=== PATIENT | male | born 1955 | race Caucasian/White ===

== ENCOUNTER → 2017-08-31 | Outpatient (CLI) | payer BC | LOC: M RAD 12:44 | DX: K83.0 Cholangitis (principal) | CPT/HCPCS: 74181 ==

== ENCOUNTER 2017-11-19 11:38 | Inpatient (IN) | payer BC ==
[2017-11-19 12:30] LABS: BASO % 0.2 % (0.0-1.0); EOS % 0.2 % (0.0-3.0); HEMATOCRIT 44.9 % (42.0-52.0); HEMOGLOBIN 15.4 g/dl (13.5-17.5); IMMATURE GRANULOCYTE % 0.5 % (0-3.0); LYMPH # 1.4 10^3/uL (1.5-4.5); MEAN CORPUSCULAR HGB CONC 34.3 g/dl (32.0-36.5); MEAN CORPUSCULAR VOLUME 93.2 fl (80.0-96.0); MONO # 0.5 10^3/uL (0.0-0.8); MONO % 2.7 % (0.0-5.0); NEUTROPHILS # 14.9 10^3/uL (1.8-7.7); NEUTROPHILS % 88.4 % (36.0-66.0); PLATELET COUNT, AUTOMATED 143 10^3/uL (150-450); RED BLOOD COUNT 4.82 10^6/uL (4.30-6.10); RED CELL DISTRIBUTION WIDTH 11.9 % (11.5-14.5); WHITE BLOOD COUNT 16.9 10^3/uL (4.0-10.0)
[2017-11-19] MEDS: NS 1,000 ML IV ×2 (12:30→15:24)
[2017-11-19 12:34] LABS: KETONE, URINE AUTO RFX NEGATIVE (NEGATIVE); MUCUS, URINE RFX SMALL (NEGATIVE); NITRITE, URINE AUTO RFX NEGATIVE (NEGATIVE); RBC, URINE AUTO RFX 3 /HPF (0-3); SQUAM EPITHELIAL CELL UR AURFX 0 /HPF (0-6)
[2017-11-19 12:43] LABS: LEUKOCYTE ESTERASE UR AUTO RFX 1+ (NEGATIVE); WBC, URINE AUTO RFX 34 /HPF (0-3)
[2017-11-19 12:47] LABS: ALBUMIN 3.8 GM/DL (3.2-5.2); ALBUMIN/GLOBULIN RATIO 1.06 (1.00-1.93); ALKALINE PHOSPHATASE 47 U/L (45-117); ALT/SGPT 45 U/L (12-78); AMYLASE 29 U/L (25-115); ANION GAP 10 MEQ/L (8-16); AST/SGOT 16 U/L (7-37); BILIRUBIN,DIRECT 0.3 MG/DL (0.0-0.2); BILIRUBIN,TOTAL 1.5 MG/DL (0.2-1.0); BLOOD UREA NITROGEN 18 MG/DL (7-18); CARBON DIOXIDE LEVEL 27 MEQ/L (21-32); CHLORIDE LEVEL 100 MEQ/L (98-107); CREATININE FOR GFR 1.25 MG/DL (0.70-1.30); GLOMERULAR FILTRATION RATE > 60.0 (>49); GLUCOSE, FASTING 280 MG/DL (70-100); LIPASE 53 U/L (73-393); SODIUM LEVEL 137 MEQ/L (136-145); TOTAL PROTEIN 7.4 GM/DL (6.4-8.2)
[2017-11-19] MEDS ORDERED: DEXTROSE 50% 50 ML SYRINGE IV (14:45)
[2017-11-19] MEDS ORDERED: GLUCAGON FOR INJ 1 MG VIAL (J1610) SC (14:45)
[2017-11-19] MEDS ORDERED: GLUCOSE 4 GM CHEW TABLET PO (14:45)
[2017-11-19] MEDS: cefTRIAXone SOD 1 GM in D5W MINI-BAG PLUS 50 ML IV (14:48)
[2017-11-19 16:43] LABS: CHLAMYDIA DNA AMPLIFICATION NEGATIVE (NEGATIVE); GC DNA AMPLIFICATION NEGATIVE (NEGATIVE)
[2017-11-19] MEDS: ACETAMINOPHEN TAB 650MG DOSE (2X325MG) PO ×2 (16:50→22:06)
[2017-11-19 17:44] LABS: BEDSIDE GLUCOSE 215 MG/DL (80-115)
[2017-11-19] MEDS: HumaLOG INSULIN (NovoLOG) PER UNIT SC (17:58)
[2017-11-19] MEDS: HEPARIN SOD (PORCINE) 5000 UNITS/ML VIAL SC (17:58)
[2017-11-19 18:07] LABS: LACTIC ACID SEPSIS PROTOCOL 1.8 MMOL/L (0.4-2.0)
[2017-11-19] MEDS: UNRESOLVED PATIENT OWN MED ORDER XX (19:00)
[2017-11-19] MEDS ORDERED: MESALAMINE 400 MG CAPSULE DELAYED RELEASE (DELZICOL) PO (21:00)
[2017-11-19] MEDS: GABAPENTIN 300 MG CAP PO (22:00)
[2017-11-19] MEDS: SIMVASTATIN 20 MG TAB PO (22:00)
[2017-11-19] MEDS: CO-ENZYME Q10 50 MG CAP PO (22:00)
[2017-11-20] MEDS ORDERED: UNRESOLVED PATIENT OWN MED ORDER XX (00:01)
[2017-11-20] MEDS: HEPARIN SOD (PORCINE) 5000 UNITS/ML VIAL SC ×4 (00:09→22:47)
[2017-11-20] MEDS ORDERED: ISOVUE-370 76% 100ML VIAL (Q9967) As Ordered (00:53)
[2017-11-20 01:40] LABS: BEDSIDE GLUCOSE 259 MG/DL (80-115)
[2017-11-20] MEDS: traMADol 50 MG TAB PO (03:09)
[2017-11-20] MEDS: TAMSULOSIN 0.4 MG CAP PO ×2 (03:10→07:55)
[2017-11-20] MEDS: NS 1,000 ML IV ×2 (03:10→13:01)
[2017-11-20 06:42] LABS: HEMATOCRIT 40.2 % (42.0-52.0); HEMOGLOBIN 13.9 g/dl (13.5-17.5); MEAN CORPUSCULAR HEMOGLOBIN 32.3 pg (27.0-33.0); MEAN CORPUSCULAR HGB CONC 34.6 g/dl (32.0-36.5); MEAN CORPUSCULAR VOLUME 93.5 fl (80.0-96.0); PLATELET COUNT, AUTOMATED 115 10^3/uL (150-450); RED CELL DISTRIBUTION WIDTH 12.1 % (11.5-14.5); WHITE BLOOD COUNT 20.3 10^3/uL (4.0-10.0)
[2017-11-20 07:02] LABS: ANION GAP 7 MEQ/L (8-16); BLOOD UREA NITROGEN 14 MG/DL (7-18); CALCIUM LEVEL 8.9 MG/DL (8.8-10.2); CARBON DIOXIDE LEVEL 27 MEQ/L (21-32); CHLORIDE LEVEL 106 MEQ/L (98-107); CREATININE FOR GFR 1.04 MG/DL (0.70-1.30); GLOMERULAR FILTRATION RATE > 60.0 (>49); GLUCOSE, FASTING 214 MG/DL (70-100); SODIUM LEVEL 140 MEQ/L (136-145)
[2017-11-20] MEDS: GABAPENTIN 100 MG CAP PO (07:54)
[2017-11-20] MEDS: ASCORBIC ACID 500 MG TAB PO (07:54)
[2017-11-20] MEDS: LISINOPRIL 40 MG TAB PO (07:54)
[2017-11-20] MEDS: PANTOPRAZOLE 40MG TAB (PROTONIX) PO (07:54)
[2017-11-20] MEDS: hydroCHLOROthiazide 25 MG TAB PO (07:55)
[2017-11-20] MEDS: HumaLOG INSULIN (NovoLOG) PER UNIT SC ×4 (07:56→20:06)
[2017-11-20] MEDS: UNRESOLVED PATIENT OWN MED ORDER XX (07:57)
[2017-11-20 11:21] LABS: BEDSIDE GLUCOSE 444 MG/DL (80-115)
[2017-11-20] MEDS: cefTRIAXone SOD 1 GM in D5W MINI-BAG PLUS 50 ML IV (15:20)
[2017-11-20] MEDS: ACETAMINOPHEN TAB 650MG DOSE (2X325MG) PO (15:23)
[2017-11-20 16:27] LABS: BEDSIDE GLUCOSE 400 MG/DL (80-115)
[2017-11-20 19:54] LABS: BEDSIDE GLUCOSE 206 MG/DL (80-115)
[2017-11-20] MEDS: LEVEMIR (INSULIN DETEMIR) 1 UNITS/0.01ML SC (20:14)
[2017-11-20] MEDS: CO-ENZYME Q10 50 MG CAP PO (20:14)
[2017-11-20] MEDS: GABAPENTIN 300 MG CAP PO (20:14)
[2017-11-20] MEDS: SIMVASTATIN 20 MG TAB PO (20:14)
[2017-11-21] MEDS: NS 1,000 ML IV (00:12)
[2017-11-21] MEDS: ACETAMINOPHEN TAB 650MG DOSE (2X325MG) PO ×5 (00:12→18:55)
[2017-11-21] MEDS: HEPARIN SOD (PORCINE) 5000 UNITS/ML VIAL SC ×3 (05:13→20:26)
[2017-11-21 06:08] LABS: HEMATOCRIT 37.7 % (42.0-52.0); HEMOGLOBIN 13.2 g/dl (13.5-17.5); MEAN CORPUSCULAR HEMOGLOBIN 32.4 pg (27.0-33.0); MEAN CORPUSCULAR VOLUME 92.6 fl (80.0-96.0); PLATELET COUNT, AUTOMATED 102 10^3/uL (150-450); RED BLOOD COUNT 4.07 10^6/uL (4.30-6.10); RED CELL DISTRIBUTION WIDTH 11.9 % (11.5-14.5); WHITE BLOOD COUNT 8.3 10^3/uL (4.0-10.0)
[2017-11-21 06:33] LABS: ANION GAP 8 MEQ/L (8-16); BLOOD UREA NITROGEN 11 MG/DL (7-18); CALCIUM LEVEL 8.3 MG/DL (8.8-10.2); CARBON DIOXIDE LEVEL 27 MEQ/L (21-32); CHLORIDE LEVEL 106 MEQ/L (98-107); CREATININE FOR GFR 0.94 MG/DL (0.70-1.30); GLOMERULAR FILTRATION RATE > 60.0 (>49); GLUCOSE, FASTING 184 MG/DL (70-100); POTASSIUM SERUM 3.5 MEQ/L (3.5-5.1); SODIUM LEVEL 141 MEQ/L (136-145)
[2017-11-21 06:57] LABS: ESTIMATED AVERAGE GLUCOSE 174 MG/DL (60-110); HEMOGLOBIN A1c 7.7 %
[2017-11-21] MEDS: hydroCHLOROthiazide 25 MG TAB PO (08:29)
[2017-11-21] MEDS: ASCORBIC ACID 500 MG TAB PO (08:29)
[2017-11-21] MEDS: GABAPENTIN 100 MG CAP PO (08:29)
[2017-11-21] MEDS: PANTOPRAZOLE 40MG TAB (PROTONIX) PO (08:29)
[2017-11-21] MEDS: TAMSULOSIN 0.4 MG CAP PO (08:29)
[2017-11-21] MEDS: LISINOPRIL 40 MG TAB PO (08:29)
[2017-11-21] MEDS: HumaLOG INSULIN (NovoLOG) PER UNIT SC ×4 (08:30→20:27)
[2017-11-21] MEDS: LEVEMIR (INSULIN DETEMIR) 1 UNITS/0.01ML SC ×2 (08:30→20:01)
[2017-11-21] MEDS: UNRESOLVED PATIENT OWN MED ORDER XX (08:58)
[2017-11-21 09:55] LABS: CONTROL LINE INT CTR LINE PRESENT; HIV SCRN NEGATIVE (NEGATIVE); HIV SCRN1 NEGATIVE (NEGATIVE)
[2017-11-21 11:37] LABS: BEDSIDE GLUCOSE 308 MG/DL (80-115)
[2017-11-21] MEDS: LIALDA 1.2 GM PO ×2 (13:12→19:59)
[2017-11-21] MEDS: cefTRIAXone SOD 1 GM in D5W MINI-BAG PLUS 50 ML IV (14:32)
[2017-11-21 16:55] LABS: BEDSIDE GLUCOSE 161 MG/DL (80-115)
[2017-11-21] MEDS: KETOROLAC 30 MG/ML VIAL (J1885) IV (19:59)
[2017-11-21] MEDS: SIMVASTATIN 20 MG TAB PO (20:00)
[2017-11-21] MEDS: GABAPENTIN 300 MG CAP PO (20:00)
[2017-11-21] MEDS: CO-ENZYME Q10 50 MG CAP PO (20:00)
[2017-11-21 20:09] LABS: HEMATOCRIT 37.8 % (42.0-52.0); HEMOGLOBIN 13.3 g/dl (13.5-17.5); MEAN CORPUSCULAR HEMOGLOBIN 32.2 pg (27.0-33.0); MEAN CORPUSCULAR HGB CONC 35.2 g/dl (32.0-36.5); MEAN CORPUSCULAR VOLUME 91.5 fl (80.0-96.0); PLATELET COUNT, AUTOMATED 112 10^3/uL (150-450); RED BLOOD COUNT 4.13 10^6/uL (4.30-6.10); RED CELL DISTRIBUTION WIDTH 11.8 % (11.5-14.5); WHITE BLOOD COUNT 4.6 10^3/uL (4.0-10.0)
[2017-11-21 20:16] LABS: BEDSIDE GLUCOSE 261 MG/DL (80-115)
[2017-11-22] MEDS: ACETAMINOPHEN TAB 650MG DOSE (2X325MG) PO ×2 (02:16→09:12)
[2017-11-22 06:47] LABS: HEMATOCRIT 38.4 % (42.0-52.0); HEMOGLOBIN 13.5 g/dl (13.5-17.5); MEAN CORPUSCULAR HEMOGLOBIN 31.8 pg (27.0-33.0); MEAN CORPUSCULAR HGB CONC 35.2 g/dl (32.0-36.5); MEAN CORPUSCULAR VOLUME 90.6 fl (80.0-96.0); PLATELET COUNT, AUTOMATED 118 10^3/uL (150-450); RED BLOOD COUNT 4.24 10^6/uL (4.30-6.10); RED CELL DISTRIBUTION WIDTH 11.9 % (11.5-14.5); WHITE BLOOD COUNT 4.6 10^3/uL (4.0-10.0)
[2017-11-22] MEDS: HEPARIN SOD (PORCINE) 5000 UNITS/ML VIAL SC ×4 (06:52→20:48)
[2017-11-22 07:10] LABS: ANION GAP 7 MEQ/L (8-16); BLOOD UREA NITROGEN 13 MG/DL (7-18); C REACTIVE PROTEIN QUANTITATIV 5.63 MG/DL (0.00-0.30); CALCIUM LEVEL 8.6 MG/DL (8.8-10.2); CARBON DIOXIDE LEVEL 29 MEQ/L (21-32); CHLORIDE LEVEL 103 MEQ/L (98-107); CREATININE FOR GFR 0.97 MG/DL (0.70-1.30); GLOMERULAR FILTRATION RATE > 60.0 (>49); GLUCOSE, FASTING 169 MG/DL (70-100); POTASSIUM SERUM 3.5 MEQ/L (3.5-5.1); SODIUM LEVEL 139 MEQ/L (136-145)
[2017-11-22] MEDS: HumaLOG INSULIN (NovoLOG) PER UNIT SC ×4 (09:01→20:37)
[2017-11-22] MEDS: ASCORBIC ACID 500 MG TAB PO (09:02)
[2017-11-22] MEDS: TAMSULOSIN 0.4 MG CAP PO (09:02)
[2017-11-22] MEDS: LIALDA 1.2 GM PO ×2 (09:02→20:37)
[2017-11-22] MEDS: LISINOPRIL 40 MG TAB PO (09:02)
[2017-11-22] MEDS: LEVEMIR (INSULIN DETEMIR) 1 UNITS/0.01ML SC ×2 (09:02→20:38)
[2017-11-22] MEDS: PANTOPRAZOLE 40MG TAB (PROTONIX) PO (09:03)
[2017-11-22] MEDS: hydroCHLOROthiazide 25 MG TAB PO (09:03)
[2017-11-22] MEDS: GABAPENTIN 100 MG CAP PO (09:03)
[2017-11-22 12:07] LABS: BEDSIDE GLUCOSE 316 MG/DL (80-115)
[2017-11-22] MEDS ORDERED: MIRALAX *UNIT DOSE* 17GM PACKET PO (12:30)
[2017-11-22] MEDS: SENNA 8.6 MG TAB (SENOKOT) PO ×2 (13:05→20:37)
[2017-11-22] MEDS: cefTRIAXone SOD 1 GM in D5W MINI-BAG PLUS 50 ML IV (15:31)
[2017-11-22 17:04] LABS: BEDSIDE GLUCOSE 274 MG/DL (80-115)
[2017-11-22 20:28] LABS: BEDSIDE GLUCOSE 273 MG/DL (80-115)
[2017-11-22] MEDS: SIMVASTATIN 20 MG TAB PO (20:36)
[2017-11-22] MEDS: CO-ENZYME Q10 50 MG CAP PO (20:36)
[2017-11-22] MEDS: GABAPENTIN 300 MG CAP PO (20:37)
[2017-11-23] MEDS: HEPARIN SOD (PORCINE) 5000 UNITS/ML VIAL SC ×3 (06:00→21:05)
[2017-11-23 06:46] LABS: HEMATOCRIT 37.1 % (42.0-52.0); HEMOGLOBIN 13.3 g/dl (13.5-17.5); MEAN CORPUSCULAR HGB CONC 35.8 g/dl (32.0-36.5); MEAN CORPUSCULAR VOLUME 89.2 fl (80.0-96.0); PLATELET COUNT, AUTOMATED 139 10^3/uL (150-450); RED BLOOD COUNT 4.16 10^6/uL (4.30-6.10); RED CELL DISTRIBUTION WIDTH 11.6 % (11.5-14.5); WHITE BLOOD COUNT 8.1 10^3/uL (4.0-10.0)
[2017-11-23 07:17] LABS: ANION GAP 7 MEQ/L (8-16); BLOOD UREA NITROGEN 11 MG/DL (7-18); C REACTIVE PROTEIN QUANTITATIV 3.27 MG/DL (0.00-0.30); CALCIUM LEVEL 8.6 MG/DL (8.8-10.2); CARBON DIOXIDE LEVEL 30 MEQ/L (21-32); CHLORIDE LEVEL 102 MEQ/L (98-107); CREATININE FOR GFR 0.87 MG/DL (0.70-1.30); GLOMERULAR FILTRATION RATE > 60.0 (>49); GLUCOSE, FASTING 214 MG/DL (70-100); POTASSIUM SERUM 3.5 MEQ/L (3.5-5.1); SODIUM LEVEL 139 MEQ/L (136-145)
[2017-11-23] MEDS: HumaLOG INSULIN (NovoLOG) PER UNIT SC ×4 (08:03→21:05)
[2017-11-23] MEDS: LEVEMIR (INSULIN DETEMIR) 1 UNITS/0.01ML SC ×2 (08:59→21:05)
[2017-11-23] MEDS: LISINOPRIL 40 MG TAB PO (09:00)
[2017-11-23] MEDS: LIALDA 1.2 GM PO ×2 (09:00→21:04)
[2017-11-23] MEDS: SENNA 8.6 MG TAB (SENOKOT) PO ×2 (09:00→21:03)
[2017-11-23] MEDS: LevoFLOXacin 500 MG TABLET PO (09:00)
[2017-11-23] MEDS: hydroCHLOROthiazide 25 MG TAB PO (09:01)
[2017-11-23] MEDS: PANTOPRAZOLE 40MG TAB (PROTONIX) PO (09:01)
[2017-11-23] MEDS: TAMSULOSIN 0.4 MG CAP PO (09:02)
[2017-11-23] MEDS: ASCORBIC ACID 500 MG TAB PO (09:02)
[2017-11-23] MEDS: GABAPENTIN 100 MG CAP PO (09:02)
[2017-11-23 12:11] LABS: BEDSIDE GLUCOSE 240 MG/DL (80-115)
[2017-11-23 17:22] LABS: BEDSIDE GLUCOSE 320 MG/DL (80-115)
[2017-11-23 20:50] LABS: BEDSIDE GLUCOSE 314 MG/DL (80-115)
[2017-11-23] MEDS: CO-ENZYME Q10 50 MG CAP PO (21:03)
[2017-11-23] MEDS: SIMVASTATIN 20 MG TAB PO (21:03)
[2017-11-23] MEDS: GABAPENTIN 300 MG CAP PO (21:03)
[2017-11-24] MEDS: HEPARIN SOD (PORCINE) 5000 UNITS/ML VIAL SC (06:00)
[2017-11-24] MEDS: LevoFLOXacin 500 MG TABLET PO (06:11)
[2017-11-24 06:38] LABS: HEMATOCRIT 38.3 % (42.0-52.0); HEMOGLOBIN 13.3 g/dl (13.5-17.5); MEAN CORPUSCULAR HEMOGLOBIN 31.2 pg (27.0-33.0); MEAN CORPUSCULAR HGB CONC 34.7 g/dl (32.0-36.5); MEAN CORPUSCULAR VOLUME 89.9 fl (80.0-96.0); PLATELET COUNT, AUTOMATED 155 10^3/uL (150-450); RED BLOOD COUNT 4.26 10^6/uL (4.30-6.10); RED CELL DISTRIBUTION WIDTH 11.9 % (11.5-14.5); WHITE BLOOD COUNT 7.5 10^3/uL (4.0-10.0)
[2017-11-24 06:52] LABS: ANION GAP 7 MEQ/L (8-16); BLOOD UREA NITROGEN 12 MG/DL (7-18); C REACTIVE PROTEIN QUANTITATIV 1.93 MG/DL (0.00-0.30); CALCIUM LEVEL 8.2 MG/DL (8.8-10.2); CARBON DIOXIDE LEVEL 29 MEQ/L (21-32); CHLORIDE LEVEL 105 MEQ/L (98-107); CREATININE FOR GFR 0.85 MG/DL (0.70-1.30); GLOMERULAR FILTRATION RATE > 60.0 (>49); GLUCOSE, FASTING 263 MG/DL (70-100); POTASSIUM SERUM 3.8 MEQ/L (3.5-5.1); SODIUM LEVEL 141 MEQ/L (136-145)
[2017-11-24] MEDS: HumaLOG INSULIN (NovoLOG) PER UNIT SC (09:12)
[2017-11-24] MEDS: LIALDA 1.2 GM PO (09:13)
[2017-11-24] MEDS: LEVEMIR (INSULIN DETEMIR) 1 UNITS/0.01ML SC (09:13)
[2017-11-24] MEDS: TAMSULOSIN 0.4 MG CAP PO (09:13)
[2017-11-24] MEDS: GABAPENTIN 100 MG CAP PO (09:14)
[2017-11-24] MEDS: LISINOPRIL 40 MG TAB PO (09:14)
[2017-11-24] MEDS: ASCORBIC ACID 500 MG TAB PO (09:14)
[2017-11-24] MEDS: PANTOPRAZOLE 40MG TAB (PROTONIX) PO (09:14)
[2017-11-24] MEDS: hydroCHLOROthiazide 25 MG TAB PO (09:14)
[2017-11-24] MEDS: SENNA 8.6 MG TAB (SENOKOT) PO (09:15)
== END 2017-11-24 10:38 | disposition home or self-care (01) | DRG 720 ==
LOC: M PED 11-21 15:48 → M ED 11:38 → M ED INP 14:44 → M MSPAV 17:14
DX: A41.9 Sepsis, unspecified organism (principal); E11.40 Type 2 diabetes mellitus with diabetic neuropathy, unspecified; K51.90 Ulcerative colitis, unspecified, without complications; N28.1 Cyst of kidney, acquired; N39.0 Urinary tract infection, site not specified; I10 Essential (primary) hypertension; N41.0 Acute prostatitis; K21.9 Gastro-esophageal reflux disease without esophagitis; E78.5 Hyperlipidemia, unspecified; Z79.899 Other long term (current) drug therapy; N40.0 Benign prostatic hyperplasia without lower urinary tract symptoms; B96.1 Klebsiella pneumoniae [K. pneumoniae] as the cause of diseases classified elsewhere

== ENCOUNTER → 2018-10-04 | Outpatient (CLI) | payer BC ==
[~2018-10-04] MED LIST: CIAL5TAB PO; CO Q150C PO; DEXI60CA2 PO; FARX1TAB3 PO; FLOM0.4C39 PO; GABA-1171 PO; GABA-843 PO; HYDR25TAB PO; JANU50TA25 PO; LEVA1TAB2 PO; LIAL1.2T PO; LIDOCAINE 1% MDV 20ML VIAL As Ordered ONE; LISI40TA PO; MAGN250T9 PO; MILK150C PO; MILK500C PO; MULT1TAB18 PO; MULTCAP PO; PIOG1TAB55 PO; SAW450CA2 PO; SIMV20TA2 PO; VITA400T15 PO; VITA50005 PO; VITA500T PO
--- NOTE | 2018-10-04 13:21 | REP ---
Ultrasound-guided liver biopsy This procedure was performed by Daphne Mathur [facility], under the personal supervision of Dr. South. The risks and benefits of the procedure were explained to the patient and informed consent was obtained both verbally and written. Directly prior to the start of the procedure, a formal timeout was done in the procedure room. The left lobe of the liver was localized using ultrasound guidance. The skin was prepped and draped in a sterile fashion. 10 ml of 1% lidocaine was used as a local anesthetic. Using ultrasound guidance a small skin manny was made and a 19/20 gauge coaxial needle biopsy system was inserted and advanced into the liver. 4 core biopsy samples were obtained and sent to the lab. The patient tolerated the procedure well and there were no immediate complications. After the appropriate monitored convalescence the patient was discharged home from the department. Reviewed by RADHA Verde 10/04/2018 10:08 A Electronically Signed by Cr South MD 10/04/2018 01:11 P
== END ==
LOC: M RADPRO 08:39
PROVIDERS: ATTEND Internal Medicine Gastroenterology
DX: K83.01 Primary sclerosing cholangitis (principal)

== ENCOUNTER 2018-10-29 07:31 | Day surgery (SDC) | payer BC ==
[~2018-10-29] VITALS: Ht 180.3 cm; Wt 90.7 kg
[~2018-10-29 07:31] MED LIST changes: -LIDOCAINE 1% MDV 20ML VIAL As Ordered ONE; +NS 1,000 ML IV ONE
[2018-10-29] MEDS ORDERED: PROPOFOL 200 MG/20 ML VIAL As Ordered ONE ×2 (08:37→08:38)
[2018-10-29] MEDS ORDERED: LIDOCAINE 2% INJ 100 MG/5 ML SDV (FOR ANES.) As Ordered ONE (08:37)
--- NOTE | 2018-10-29 09:05 | ROOR ---
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 Procedure: Pre-Anesthesia Assessment: - The heart rate, respiratory rate, oxygen saturations, blood pressure, adequacy of pulmonary ventilation, and response to care were monitored throughout the procedure. The Colonoscope was introduced through the anus and advanced to the terminal ileum, with identification of the appendiceal orifice and IC valve. The colonoscopy was performed without difficulty. The patient tolerated the procedure well. The quality of the bowel preparation was good. Findings: The perianal and digital rectal examinations were normal. Mild sigmoid diverticulosis and small internal hemorrhoids. The colon (entire examined portion) was mildly redundant. Retroflexion in the right colon was performed. Background biopsies were taken for histology with a cold forceps from the ascending colon, transverse colon, descending colon, sigmoid colon and rectum. These biopsy specimens were sent to Pathology. For hemostasis, one hemostatic clip was successfully placed in the descending colon. There was no bleeding at the end of the procedure. The terminal ileum appeared normal. Impression: - Mild sigmoid diverticulosis and small internal hemorrhoids. - Redundant colon. - Otherwise normal colonoscopy. - The examined portion of the ileum was normal. - UC Is in remission. I do not see any visual evidence of ulcerative colitis today. - Background biopsies were taken from the ascending colon, transverse colon, descending colon, sigmoid colon and rectum. - One hemostatic clip was successfully placed in the descending colon. Recommendation: - Continue present medications. - Repeat colonoscopy in 2-3 years for ulcerative colitis >10 yrs- for surveillance. Sunny May MD Sunny MAY MD 10/29/2018 9:04:57 AM Electronically signed by Sunny MAY MD Number of Addenda: 0 Note Initiated On: 10/29/2018 8:28 AM Estimated Blood Loss: Estimated blood loss: none.
[2018-10-29 09:26] VITALS: BP 116/83
== END 2018-10-29 09:27 | disposition home or self-care (01) ==
LOC: M OPP 07:31
PROVIDERS: ATTEND Internal Medicine Gastroenterology
DX: Z86.010 Personal history of colon polyps (principal); K51.50 Left sided colitis without complications; Q43.8 Other specified congenital malformations of intestine; K64.8 Other hemorrhoids; Z79.899 Other long term (current) drug therapy; F17.210 Nicotine dependence, cigarettes, uncomplicated

== ENCOUNTER 2020-06-14 12:53 | Emergency (ER) | payer BC ==
[~2020-06-14] VITALS: Ht 180.3 cm; Wt 93.4 kg
[~2020-06-14 12:53] MED LIST changes: +GABA-282 PO; -GABA-843 PO; +HYDR-3490 PO; -HYDR25TAB PO; -LISI40TA PO; +LISI40TA4 PO; -NS 1,000 ML IV ONE; -SIMV20TA2 PO; +SIMV20TA22 PO; +VITA-243 PO; -VITA500T PO
[2020-06-14] MEDS ORDERED: GNP45TAB2 PO (13:22)
[2020-06-14] MEDS ORDERED: GNP250TA9 PO (13:22)
[2020-06-14] MEDS ORDERED: CBD gummies PO (13:22)
[2020-06-14] MEDS ORDERED: SUPER BETA PROSTATE PO (13:22)
[2020-06-14] MEDS ORDERED: ESTE1TAB4 PO (13:22)
[2020-06-14 13:45] LABS: BASO # 0.1 10^3/uL (0.0-0.2); BASO % 0.9 % (0.0-1.0); EOS # 0.1 10^3/uL (0.0-0.5); EOS % 1.3 % (0.0-3.0); HEMATOCRIT 39.1 % (42.0-52.0); LYMPH # 1.8 10^3/uL (1.5-5.0); MEAN CORPUSCULAR HGB CONC 33.2 g/dl (32.0-36.5); MEAN CORPUSCULAR VOLUME 93.1 fl (80.0-96.0); MONO # 0.5 10^3/uL (0.0-0.8); MONO % 7.5 % (2.0-8.0); NEUTROPHILS # 4.3 10^3/uL (1.5-8.5); NEUTROPHILS % 62.9 % (36.0-66.0); PLATELET COUNT, AUTOMATED 159 10^3/uL (150-450); WHITE BLOOD COUNT 6.8 10^3/uL (4.0-10.0)
[2020-06-14] MEDS ORDERED: ASPIRIN 81 MG CHEW TABLET PO ONE (13:45)
[2020-06-14] MEDS ORDERED: GI COCKTAIL 50ML BTL(HYOSCYAMINE/MAALOX/LIDOCAINE VISCOUS)(1:3:1) PO ONE (13:45)
[2020-06-14 13:55] LABS: INR 1.12; PROTHROMBIN TIME 14.6 SECONDS (12.5-14.3)
[2020-06-14 14:01] LABS: ALBUMIN 4.1 GM/DL (3.2-5.2); ALT/SGPT 33 U/L (12-78); BILIRUBIN,DIRECT 0.1 MG/DL (0.0-0.2); BILIRUBIN,TOTAL 0.6 MG/DL (0.2-1.0); BLOOD UREA NITROGEN 19 MG/DL (7-18); CALCIUM LEVEL 9.3 MG/DL (8.8-10.2); CARBON DIOXIDE LEVEL 29 MEQ/L (21-32); CHLORIDE LEVEL 105 MEQ/L (98-107); CREATININE FOR GFR 0.99 MG/DL (0.70-1.30); GLOMERULAR FILTRATION RATE > 60.0 (>49); GLUCOSE, FASTING 155 MG/DL (70-100); SODIUM LEVEL 139 MEQ/L (136-145); TOTAL PROTEIN 6.7 GM/DL (6.4-8.2)
--- NOTE | 2020-06-14 14:02 | REP ---
INDICATION: CHEST PAIN COMPARISON: None. TECHNIQUE: Portable AP view of the chest FINDINGS: The mediastinum and cardiac silhouette are within normal limits for portable technique. The lung rojas are clear without acute consolidation, effusion, or pneumothorax. Skeletal structures are intact. IMPRESSION: No acute cardiopulmonary process appreciated. <Electronically signed by Robby Cruz > 06/14/20 [id number]
[2020-06-14 17:46] VITALS: BP 151/72
--- NOTE | 2020-06-15 08:06 | ECGEPIP ---
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
--- NOTE | 2020-06-15 08:14 | ECGEPIP ---
[facility] - ED Test Date: 2020-06-14 Pat Name: SAGAR GALINDO Department: Room: - Gender: Male [employer] Port[employer] Advisor: MARGIE : 1955 Requested By: LISSETH PEARL Order Number: [id number] Reading MD: Marline Neff Measurements Intervals [place] Rate: 59 P: 54 NV: 170 QRS: -11 QRSD: 100 T: 7 QT: 406 QTc: 401 Interpretive Statements Sinus bradycardia decreased rate 06/14/20 12:17 Electronically Signed on 06-15-2020 8:13:44 EST by Marline Neff
== END 2020-06-14 17:54 | disposition home or self-care (01) ==
LOC: M ED 12:53
DX: R07.89 Other chest pain (principal); E11.9 Type 2 diabetes mellitus without complications; I10 Essential (primary) hypertension; E78.5 Hyperlipidemia, unspecified; Z79.899 Other long term (current) drug therapy

== ENCOUNTER → 2021-08-17 | Outpatient (CLI) | payer BC ==
[~2021-08-17] MED LIST changes: +BLAC1CAP2 PO; +CBD gummies PO; +ESTE1TAB4 PO; +GNP250TA9 PO; +GNP45TAB2 PO; +OMEGA Q PLUS PO; +SUPER BETA PROSTATE PO; +VITA500045 PO
== END ==
LOC: M LABSMTC 11:13
PROVIDERS: ATTEND Anesthesiology
DX: Z20.828 Contact with and (suspected) exposure to other viral communicable diseases (principal); Z11.59 Encounter for screening for other viral diseases

== ENCOUNTER 2021-08-22 06:24 | Day surgery (SDC) | payer BC ==
[~2021-08-22] VITALS: Ht 180.3 cm; Wt 89.4 kg
[~2021-08-22 06:24] MED LIST changes: +NS 1,000 ML IV ONE
[2021-08-22] MEDS ORDERED: propofoL 200 MG/20 ML VIAL As Ordered ONE (07:17)
[2021-08-22] MEDS ORDERED: LIDOCAINE 2% 100MG/5ML SDV (FOR ANES.) As Ordered ONE (07:17)
[2021-08-22 08:37] VITALS: BP 143/79
== END 2021-08-22 08:38 | disposition home or self-care (01) ==
LOC: M OPP 06:24
PROVIDERS: ATTEND Internal Medicine Gastroenterology
DX: K51.50 Left sided colitis without complications (principal); K51.30 Ulcerative (chronic) rectosigmoiditis without complications; K63.5 Polyp of colon; K57.30 Diverticulosis of large intestine without perforation or abscess without bleeding; Z80.0 Family history of malignant neoplasm of digestive organs; Z79.02 Long term (current) use of antithrombotics/antiplatelets; Z79.84 Long term (current) use of oral hypoglycemic drugs; Z79.899 Other long term (current) drug therapy

== ENCOUNTER → 2022-07-14 | Outpatient (CLI) | payer BC ==
[~2022-07-14] MED LIST changes: -NS 1,000 ML IV ONE
== END ==
LOC: M PLALAB 15:50
PROVIDERS: ATTEND Urology
DX: Z12.5 Encounter for screening for malignant neoplasm of prostate (principal)

== ENCOUNTER 2022-08-18 06:18 | Day surgery (SDC) | payer BC ==
[~2022-08-18] VITALS: Ht 180.3 cm; Wt 85.7 kg
[~2022-08-18 06:18] MED LIST changes: +NS 1,000 ML IV ONE; +OMEG1CAP85 PO
[2022-08-18] MEDS ORDERED: propofoL 500 MG/50 ML VIAL As Ordered ONE (06:51)
[2022-08-18] MEDS ORDERED: LIDOCAINE 2% 100MG/5ML SDV (FOR ANES.) As Ordered ONE (06:51)
[2022-08-18 08:30] VITALS: BP 113/56
== END 2022-08-18 08:35 | disposition home or self-care (01) ==
LOC: M OPP 06:18
PROVIDERS: ATTEND Internal Medicine Gastroenterology
DX: K64.8 Other hemorrhoids (principal); K57.30 Diverticulosis of large intestine without perforation or abscess without bleeding; K51.50 Left sided colitis without complications; K52.89 Other specified noninfective gastroenteritis and colitis; K63.89 Other specified diseases of intestine; R11.0 Nausea; F17.220 Nicotine dependence, chewing tobacco, uncomplicated; Z79.02 Long term (current) use of antithrombotics/antiplatelets; Z79.84 Long term (current) use of oral hypoglycemic drugs; Z79.899 Other long term (current) drug therapy

== ENCOUNTER → 2022-08-21 | Outpatient (CLI) | payer BC ==
[~2022-08-21] MED LIST changes: -NS 1,000 ML IV ONE
== END ==
LOC: M RAD 08:36
PROVIDERS: ATTEND Internal Medicine Gastroenterology
DX: R11.0 Nausea (principal)

== ENCOUNTER → 2022-09-10 | Outpatient (CLI) | payer BC | LOC: M RAD 08:28 | PROVIDERS: ATTEND Internal Medicine Gastroenterology | DX: K82.8 Other specified diseases of gallbladder (principal); R10.11 Right upper quadrant pain; R11.0 Nausea | CPT/HCPCS: 78227; A9537 ==

== ENCOUNTER 2023-12-02 07:38 | Day surgery (SDC) | payer MEDICARE, MEDICAID ==
[~2023-12-02] VITALS: Ht 180.3 cm; Wt 75.5 kg
[~2023-12-02 07:38] MED LIST changes: +ACETAMINOPHEN 1000MG 100ML IV BAG As Ordered ONE; +APRI0.37 PO; +CALC500T52 PO; +JANU100T PO; +JANU100T14 PO; +LIDOCAINE 2% 100MG/5ML SDV (FOR ANES.) As Ordered ONE; +METF10004 PO; +OMEG-28 PO; -OMEG1CAP85 PO; +ONDANSETRON 4MG 2ML VIAL As Ordered ONE; +PANT40TA29 PO; +SAW1CAP3 PO; +STOO100C30 PO; +TRUL0.5I SC; +[UNRECOGNIZED DRUG - CODE] PO; +fentaNYL 100 MCG/2 ML INJECTION As Ordered ONE; +propofoL 200 MG/20 ML VIAL As Ordered ONE
[2023-12-02] MEDS ORDERED: GLUCAGON INJ 1MG VIAL SC PRN ×2 (08:35→09:45)
[2023-12-02] MEDS ORDERED: GLUCOSE 4 GM CHEW PO PRN ×2 (08:35→09:45)
[2023-12-02] MEDS ORDERED: DEXTROSE 50% 50ML SYRINGE IV PRN ×2 (08:35→09:45)
[2023-12-02] MEDS: INSULIN LISPRO (NovoLOG) PER UNIT SC PRN (08:48)
[2023-12-02] MEDS ORDERED: LIDOCAINE 1% SDV 5ML VIAL SC PRN (09:45)
[2023-12-02] MEDS ORDERED: INSULIN LISPRO (NovoLOG) PER UNIT SC PRN (09:45)
[2023-12-02] MEDS ORDERED: LR 1,000 ML IV SCH (09:45)
[2023-12-02] MEDS: ceFAZolin SOD 2 GM in IV 1 EA IV ONE (10:00)
[2023-12-02] MEDS ORDERED: fentaNYL 100 MCG/2 ML INJECTION IV PRN (11:55)
[2023-12-02] MEDS ORDERED: HYDROMORPHONE HCL 0.5 MG/ 0.5 ML SYRINGE IV PRN (11:55)
[2023-12-02] MEDS ORDERED: ONDANSETRON 4MG 2ML VIAL IV PRN (11:55)
[2023-12-02] MEDS: LR 1,000 ML IV SCH (11:55)
[2023-12-02] MEDS ORDERED: CIPR-249 PO (12:23)
[2023-12-02] MEDS ORDERED: oxyBUTYnin 5 MG TAB PO PRN (12:45)
[2023-12-02] MEDS: oxyBUTYnin 5 MG TAB PO STA (12:51)
[2023-12-02 12:58] VITALS: BP 158/84; TEMP 97.6
[2023-12-02 13:16] VITALS: O2SAT 98
[2023-12-02] MEDS: oxyCODONE 5MG TAB PO PRN (13:16)
== END 2023-12-02 14:05 | disposition home or self-care (01) ==
LOC: M SDC 07:38
PROVIDERS: ATTEND Urology
DX: N40.1 Benign prostatic hyperplasia with lower urinary tract symptoms (principal); N13.8 Other obstructive and reflux uropathy; E11.9 Type 2 diabetes mellitus without complications; I10 Essential (primary) hypertension; K83.09 Other cholangitis; Z79.84 Long term (current) use of oral hypoglycemic drugs; Z79.899 Other long term (current) drug therapy; Z79.85 Long-term (current) use of injectable non-insulin antidiabetic drugs; E66.9 Obesity, unspecified; E78.00 Pure hypercholesterolemia, unspecified; K51.90 Ulcerative colitis, unspecified, without complications; Z87.891 Personal history of nicotine dependence
CPT/HCPCS: 52601; J0131; J0690; J1100; J1815; J2405; J3010

== ENCOUNTER → 2024-02-18 | Outpatient (REF) | payer MEDICARE, MEDICAID ==
[~2024-02-18] MED LIST changes: -ACETAMINOPHEN 1000MG 100ML IV BAG As Ordered ONE; +CIPR-249 PO; +GABA-1172 PO; -GABA-282 PO; -LIDOCAINE 2% 100MG/5ML SDV (FOR ANES.) As Ordered ONE; -ONDANSETRON 4MG 2ML VIAL As Ordered ONE; -fentaNYL 100 MCG/2 ML INJECTION As Ordered ONE; -propofoL 200 MG/20 ML VIAL As Ordered ONE
[2024-02-18 18:08] LABS: APPEARANCE, URINE HAZY (CLEAR); BACTERIA, URINE AUTO NEGATIVE (NEGATIVE); BILIRUBIN, URINE AUTO NEGATIVE (NEGATIVE); BLOOD, URINE BLOOD 2+ (NEGATIVE); COLOR, URINE YELLOW (YELLOW); GLUCOSE, URINE (UA) AUTO 1+ mg/dL (NEGATIVE); KETONE, URINE AUTO NEGATIVE (NEGATIVE); LEUKOCYTE ESTERASE, URINE AUTO 3+ (NEGATIVE); MUCUS, URINE SMALL (NEGATIVE); NITRITE, URINE AUTO NEGATIVE (NEGATIVE); PROTEIN, URINE AUTO NEGATIVE (NEGATIVE); RBC, URINE AUTO 14 /HPF (0-3); SPECIFIC GRAVITY URINE AUTO 1.017 (1.002-1.035); SQUAMOUS EPITHELIAL CELL UR AU 0 /HPF (0-6); UROBILINOGEN, URINE AUTO 0.2 mg/dL (0.0-2.0); WBC, URINE AUTO 81 /HPF (0-3)
== END ==
LOC: M SMT 17:20
PROVIDERS: ATTEND Urology
DX: R31.0 Gross hematuria (principal)